=== PATIENT | male | born 1990 | race Caucasian/White ===

== ENCOUNTER 2024-02-12 09:31 | Emergency (ER) | payer BC, SELFPAY ==
[2024-02-12 09:38] VITALS: BP 137/87; PULSE 89; TEMP 36.9; O2SAT 99; BMI 31.0
--- NOTE | 2024-02-12 09:46 | XR_ITS ---
The [address] [address] Patient Name: JIMMY VALDEZ MRN: [id number] date: 1990 Sex: M Assigned Patient Location: ED.MAIN Current Patient Location: ER Accession/Order Number: [id number] Exam Date: 02/12/2024 10:15 Report Date: 02/12/2024 10:41 At the request of: JEAN REAL Procedure: XR abdomen 1V EXAM: XR abdomen 1V HISTORY: pain COMPARISON: CT abdomen and CT pelvis studies dated 04/16/2022 TECHNIQUE: AP view of the abdomen was obtained. FINDINGS: Calcific density overlying the inferior right kidney measuring 0.4 cm compatible with right renal calculus in correlated with CT study. There are 2 calcific densities overlying the mid and inferior aspects of the left kidney measuring approximately 0.3 and 0.2 cm compatible with left renal calculi when correlated with the CT study. There are 2 adjacent calcific densities suggested at the inferior L4 level on the left measuring approximately 0.3 cm in size each which may represent mid left ureteral calculi. Correlate clinically. Follow-up as needed. Bowel gas pattern is grossly nonspecific. Slight convexity of the thoracolumbar junction to the right with mild height loss of the lower thoracic vertebral bodies similar to the prior study. XR/XR abdomen 1V IMPRESSION: Findings compatible with calcified bilateral renal calculi as noted. Possible calcified mid left ureter calculi, correlate clinically. Follow-up as needed. Electronically authenticated by: ALEXIS DENT Date: 02/12/2024 10:41
--- NOTE | 2024-02-12 09:49 | ED.GENADUL1 ---
HPI HPI - General Adult General Chief complaint: Abdominal Pain Stated complaint: LEFT SIDE PAIN Time Seen by Provider: 02/12/24 09:46 Source: patient Mode of arrival: walk-in Limitations: no limitations History of Present Illness HPI narrative: Patient is a 33-year-old male who is presenting to the ER today with chief complaint of left lower back and left flank pain for the past 1.5 weeks. Patient has passed multiple kidney stones in the past. Patient has never had any type of lithotripsy or stent placed. Patient states that he normally passes them at home, he has no urine strainers. He currently has no urologist. Patient lab work today secondary to pain, patient stated the pain is approximately 4-5 out of 10. Patient states the pain has been intermittent but consistent for the past 1.5 weeks, he has not passed the stone yet. Patient thinks last time he had a CAT scan was approximately 2 years ago. Patient has no fever or chills. Patient has no chest pain or shortness of breath. Patient has no other acute complaints at this time. Patient looks comfortable. Patient drove to the ER. Patient left work to come to the ER. 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 No heavy lifting, twisting or turning. Patient did have left inguinal hernia repair in the past All systems are negative except as noted/marked. All systems reviewed and otherwise negative. Nurses note and vital signs reviewed and patient is not hypoxic. General: The patient appears mild distress secondary to pain, but rather comfortable on his phone. Patient is resting comfortably on cart. Patient is not toxic, lethargic, or listless Skin: Warm, dry, no pallor noted. There is no rash noted. No petechiae, purpura. Head: Normocephalic, atraumatic Eye: Normal conjunctiva, no drainage, EOMI. PERRL Ears, Nose, Mouth, and Throat: oral mucosa is moist. Nares patent. Mouth without vesicles. Cardiovascular: Regular Rate and Rhythm, no murmur, gallop, rub Respiratory: Patient is in no distress, no accessory muscle use, lungs are clear to auscultation, no wheezing, rales or rhonchi Back: Mild pain to left lower paralumbar area, no rash, otherwise non-tender, no CVA tenderness bilaterally to percussion. No CT LS midline pain GI: Patient has moderate left flank tenderness to palpation, no left lower quadrant tenderness palpation, no tenderness to palpation, no masses appreciated. No rebound, guarding, or rigidity noted. No distention Musculoskeletal: Patient has full range of motion of all of the extremities, no motor, sensory, or focal neurological deficits Neurological: A&O x4, normal speech Psychiatric: Cooperative Related Data Previous Rx's ?Medication ?Instructions ?Recorded cephalexin 500 mg capsule 500 mg PO Q12H 7 days #14 caps 02/12/24 hydrocodone 5 mg-acetaminophen 325 1 tab PO Q4H PRN pain #10 tabs 02/12/24 mg tablet ketorolac 10 mg tablet 10 mg PO Q8H PRN pain 1 day #10 02/12/24 tabs ondansetron 4 mg disintegrating 4 mg PO Q4H PRN nausea and 02/12/24 tablet vomiting 3 days #6 tabs tamsulosin 0.4 mg capsule (Flomax) 0.4 mg PO DAILY 7 days #7 caps 02/12/24 Allergies Allergy/AdvReac Type Severity Reaction Status Date / Time No Known Drug Allergies Allergy Verified 02/12/24 09:38 Opioid HPI Opioid Management Most Recent Opioid Data: Last Pain Scale 1 02/12/24 10:38 Last ED Pain Assessment 02/12/24 10:38 Last MAR Pain Assessment 02/12/24 09:59 Exam Constitutional Vital Signs, click to edit/add: Last Vital Signs Temp 98.5 F 02/12/24 09:38 Pulse 82 02/12/24 10:37 Resp 18 02/12/24 10:37 BP 134/75 02/12/24 10:37 Pulse Ox 99 02/12/24 10:37 O2 Del Method Room Air 02/12/24 09:38 Course Vital Signs Vital signs: Vital Signs Temperature 98.5 F 02/12/24 09:38 Pulse Rate 89 02/12/24 09:38 Respiratory Rate 18 02/12/24 09:38 Blood Pressure 137/87 02/12/24 09:38 Pulse Oximetry 99 02/12/24 09:38 Oxygen Delivery Method Room Air 02/12/24 09:38 Temperature 98.5 F 02/12/24 09:38 Pulse Rate 82 02/12/24 10:37 Respiratory Rate 18 02/12/24 10:37 Blood Pressure 134/75 02/12/24 10:37 Pulse Oximetry 99 02/12/24 10:37 Oxygen Delivery Method Room Air 02/12/24 09:38 Medical Decision Making MDM Narrative Medical decision making narrative: Patient x-ray shows most likely a left mid ureter stone. Patient BUN and creatinine are slightly elevated, he was given a second bag of IV fluids. Patient was given Rocephin for bacteria in the urine. There is 10 minutes spent discussing patient's CT of his abdomen pelvis from 2 years ago in 2021. Patient had a pedal splenomegaly, enlarged prostate, pulmonary nodules, bone lesion, fatty liver, and other findings. Patient was not aware of any of this. I went through each impression and discussed this with him and reasons and why to follow-up with. Patient was very thankful for time spent, he does have a PCP Dr. Seymour who he will follow-up with. Patient was given a work note for today. Patient was sent home with prescription for Zofran, [place], Toradol, and also Keflex along with Flomax. Patient currently does not have a urologist, he will follow-up with Dr. Hassan. Patient is a very pleasant to take care of, a lot of discussion at discharge on his multiple findings on CT from several years ago, reasons to follow-up, and also treatment of most likely left mid ureter stone. Patient pain and nausea and symptoms have significantly improved in the ER today. Lab Data Labs: Lab Results 02/12/24 02/12/24 Range/Units 09:40 09:45 WBC 10.3 (4.0-11.0) 10^3/uL RBC 5.43 (4.70-6.10) 10^6/uL Hgb 15.4 (14.0-18.0) g/dL Hct 46.4 (42.0-54.0) % MCV 85.5 (80.0-94.0) fL MCH 28.4 (25.9-34.0) pg MCHC 33.2 (29.9-35.2) g/dL RDW 13.0 (11.0-15.0) % Plt Count 335 (150-450) 10^3/uL MPV 10.6 (9.5-13.5) fL Neut % (Auto) 74.8 (43.0-75.0) % Lymph % (Auto) 14.3 L (20.5-60.0) % [place] % (Auto) 8.1 (1.7-12.0) % Eos % (Auto) 1.5 (0.9-7.0) % Baso % (Auto) 0.8 (0.2-2.0) % Neut # (Auto) 7.7 H (1.4-6.5) 10^3/uL Lymph # (Auto) 1.5 (1.2-3.8) 10^3/uL [place] # (Auto) 0.8 (0.3-0.8) 10^3/uL Eos # (Auto) 0.2 (0.0-0.7) 10^3/uL Baso # (Auto) 0.1 (0.0-0.1) 10^3/uL Abs Immat Gran (auto) 0.05 H (0.00-0.03) 10^3/uL Imm/Tot Granulo (auto) 0.5 (0.0-0.5) % Sodium 136 (136-145) mmol/L Potassium 4.1 (3.5-5.1) mmol/L Chloride 102 (98-107) mmol/L Carbon Dioxide 24.4 (21.0-32.0) mmol/L Anion Gap 13.7 BUN 21.0 H (7.0-18.0) mg/dL Creatinine 1.39 H (0.70-1.30) mg/dL Est GFR ( Amer) >60 (>=60) Est GFR (Non-Af Amer) 58 L (>=60) BUN/Creatinine Ratio 15.1 Glucose 100 (74-106) mg/dL Calcium 9.5 (8.5-10.1) mg/dL Total Bilirubin 1.9 H (0.2-1.0) mg/dL AST 18 (15-37) U/L ALT 33 (16-63) U/L Alkaline Phosphatase 56 (46-116) U/L Total Protein 7.5 (6.4-8.2) g/dL Albumin 3.8 (3.4-5.0) g/dL Globulin 3.7 g/dL Albumin/Globulin Ratio 1.0 Lipase 17.0 (16.0-77.0) U/L Urine Color Yellow (YELLOW) Urine Clarity Clear (CLEAR) Urine pH 6.0 (5.0-9.0) Ur Specific [place] >=1.030 A (1.005-1.025) Urine Protein Trace (NEG/TRACE) mg/dL Urine Glucose (UA) Negative (NEGATIVE) mg/dL Urine Ketones Negative (NEGATIVE) mg/dL Urine Occult Blood Large A (NEGATIVE) Urine Nitrite Negative (NEGATIVE) Urine Bilirubin Negative (NEGATIVE) Urine Urobilinogen 1.0 (0.2-1.0) EU/dL Ur Leukocyte Esterase Small A (NEGATIVE) Urine RBC 50-75 A (0-2) #/HPF Urine WBC 5-10 A (NONE SEEN) #/HPF Ur Squamous Epith Cells Rare (NONE/RARE) #/LPF Urine Crystals None seen (None Seen) #/HPF Urine Bacteria Moderate A (NONE SEEN) #/HPF Urine Casts None seen (NONE SEEN) #/LPF Urine Mucus Small A (NONE SEEN) Discharge Plan Discharge Stand Alone Forms: Work/School Release, Portal Instructions Chief Complaint: Abdominal Pain Clinical Impression: Bacteriuria, Hematuria, Calculus of kidney, Acute renal insufficiency, Dehydration Patient Disposition: Home, Self-Care Time of Disposition Decision: 11:11 Condition: Fair Prescriptions / Home Meds: New hydrocodone-acetaminophen 5-325 mg tablet 1 tab PO Q4H PRN (Reason: pain) Qty: 10 0RF ketorolac 10 mg tablet 10 mg PO Q8H PRN (Reason: pain) 1 Days Qty: 10 0RF tamsulosin [Flomax] 0.4 mg capsule 0.4 mg PO DAILY 7 Days Qty: 7 0RF cephalexin 500 mg capsule 500 mg PO Q12H 7 Days Qty: 14 0RF ondansetron 4 mg tablet,disintegrating 4 mg PO Q4H PRN (Reason: nausea and vomiting) 3 Days Qty: 6 0RF Print Language: Malay Instructions: Dehydration (ED), Renal Colic (ED), Hematuria (ED), Non-Alcoholic Fatty Liver Disease (ED), How to Strain Your Urine (ED), Pulmonary Nodules (ED), Impaired Kidney Function (ED) Additional Instructions: Continue to increase fluids Take Flomax daily Take your next dose of antibiotic tomorrow, antibiotic you had today is 24 hours A copy of your CT report was given to you and discussed. We did discuss fatty liver, enlargement of your liver, spleen. We discussed pulmonary nodules. We discussed the bone lesion. Follow-up with PCP for further evaluation and referral to specialist if needed. You have also been referred to Dr. Hassan for urology as well. Work note has been given. Use Toradol and pain medication as needed, along with nausea medication. Do not work or drive a vehicle within 4 hours after taking a pain pill. Return back to the ER for intractable nausea, vomiting, pain, or any other acute concerns Referrals: Toby Hassan MD [Physician] - 1 week Tino Seymour MD [Primary Care Provider] - 1 week
[2024-02-12] MEDS: 0.9 % SODIUM CHLORIDE 1,000 ML 999 ML IV (09:58)
[2024-02-12] MEDS: KETOROLAC TROMETHAMINE 30 MG/ML VIAL IVP (09:59)
[2024-02-12] MEDS: ONDANSETRON PF 4 MG/2 ML VIAL IV (09:59)
[2024-02-12 10:09] LABS: Basophils Absolute Auto 0.1 10^3/uL (0.0-0.1); Basophils Percent Auto 0.8 % (0.2-2.0); Eosinophils Absolute Auto 0.2 10^3/uL (0.0-0.7); Eosinophils Percent Auto 1.5 % (0.9-7.0); Hematocrit 46.4 % (42.0-54.0); Hemoglobin 15.4 g/dL (14.0-18.0); Immature Granulocytes Abs Auto 0.05 10^3/uL (0.00-0.03); Immature Granulocytes Pct Auto 0.5 % (0.0-0.5); Lymphocytes Absolute Auto 1.5 10^3/uL (1.2-3.8); Lymphocytes Percent Auto 14.3 % (20.5-60.0); Mean Corpuscular HGB Conc 33.2 g/dL (29.9-35.2); Mean Corpuscular Hemoglobin 28.4 pg (25.9-34.0); Mean Corpuscular Volume 85.5 fL (80.0-94.0); Mean Platelet Volume 10.6 fL (9.5-13.5); Monocytes Absolute Auto 0.8 10^3/uL (0.3-0.8); Monocytes Percent Auto 8.1 % (1.7-12.0); Neutrophils Absolute Auto 7.7 10^3/uL (1.4-6.5); Neutrophils Percent Auto 74.8 % (43.0-75.0); Platelet Count 335 10^3/uL (150-450); Red Blood Count 5.43 10^6/uL (4.70-6.10); White Blood Count 10.3 10^3/uL (4.0-11.0)
[2024-02-12 10:23] LABS: Alanine Aminotransferase 33 U/L (16-63); Albumin Level 3.8 g/dL (3.4-5.0); Alkaline Phosphatase 56 U/L (46-116); Anion Gap 13.7; Aspartate Amino Transferase 18 U/L (15-37); BUN Creatinine Ratio 15.1; Bilirubin Total 1.9 mg/dL (0.2-1.0); Calcium 9.5 mg/dL (8.5-10.1); Carbon Dioxide 24.4 mmol/L (21.0-32.0); Chloride 102 mmol/L (98-107); Estimated GFR (African America >60 (>=60); Estimated GFR (Non-African Ame 58 (>=60); Globulin 3.7 g/dL; Glucose 100 mg/dL (74-106); Potassium 4.1 mmol/L (3.5-5.1); Sodium 136 mmol/L (136-145); Total Protein 7.5 g/dL (6.4-8.2)
[2024-02-12 10:26] LABS: Bilirubin Urine NEGATIVE (NEGATIVE); Blood Urine LARGE (NEGATIVE); Clarity Urine CLEAR (CLEAR); Color Urine YELLOW (YELLOW); Glucose Urine UA NEGATIVE (NEGATIVE); Ketones Urine NEGATIVE (NEGATIVE); Leukocyte Esterase Urine SMALL (NEGATIVE); Nitrite Urine NEGATIVE (NEGATIVE); Protein Urine TRACE mg/dL (NEG/TRACE); Specific Gravity Urine >=1.030 (1.005-1.025)
[2024-02-12 10:37] VITALS: BP 134/75; PULSE 82; O2SAT 99
[2024-02-12 10:40] LABS: Bacteria Urine MODERATE #/HPF (NONE SEEN); Crystals Seen? None Seen #/HPF (None Seen); Mucus Urine SMALL (NONE SEEN); RBC Urine 50-75 #/HPF (0-2); Squamous Epithelial Cell Urine RARE #/LPF (NONE/RARE)
[2024-02-12 10:41] LABS: Cast Seen? NONE SEEN #/LPF (NONE SEEN)
[2024-02-12] MEDS: 0.9 % SODIUM CHLORIDE 1,000 ML 1000 ML IV (11:12)
[2024-02-12] MEDS: CEFTRIAXONE 1,000 MG in 0.9 % SODIUM CHLORIDE 50 ML 100 MG IV (11:13)
[2024-02-12 12:04] VITALS: PULSE 79; O2SAT 99
== END 2024-02-12 12:05 | disposition home or self-care (01) ==
PROVIDERS: Emergency Provider Emergency Medicine; PCP Family Medicine
DX: N20.0 Calculus of kidney (principal); E86.0 Dehydration; R31.9 Hematuria, unspecified; R82.71 Bacteriuria; N28.9 Disorder of kidney and ureter, unspecified; Z87.442 Personal history of urinary calculi
CPT/HCPCS: 36415; 74018; 80053; 81001; 83605; 83690; 85025; 96361; 96365; 96375; 99284

== ENCOUNTER 2024-02-28 09:54 | Outpatient (OUT) | payer BC, SELFPAY ==
--- NOTE | 2024-02-28 10:01 | XR_ITS ---
[address] [address] Patient Name: JIMMY VALDEZ MRN: [id number] date: 1990 Sex: M Assigned Patient Location: RAD Current Patient Location: RAD Accession/Order Number: [id number] Exam Date: 02/28/2024 10:13 Report Date: 02/28/2024 10:38 At the request of: NATTY FISHMAN Procedure: XR abdomen 1V EXAMINATION: XR abdomen 1V HISTORY: Kidney Stone N20.0 COMPARISON: 02/12/2024 FINDINGS: KIDNEY/URETER - RIGHT: No visible renal or ureteral calcifications. KIDNEY/URETER - LEFT: Punctate nephrolithiasis PELVIS: No visible ureteral calcifications. Any visible calcifications favor phleboliths. BOWEL: No abnormal dilation or deviation. Moderate stool in the right colon and rectum BONES: No acute abnormality. OTHER: Negative. No abnormal gaseous collections. XR/XR abdomen 1V IMPRESSION: Left nephrolithiasis Electronically authenticated by: GLO SAHNI Date: 02/28/2024 10:38
--- OUTSIDE RECORDS SUMMARY | 2024-02-28 10:05 | XMS_ITS | CCD ---
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 Name Role Phone DR BERKLEY BROCK Primary Care Unavailable JOSEPH JALLOH Admitting Unavailable KHLOE TRIMBLE Consulting Unavailable JOSEPH JALLOH Attending Unavailable TYRESE NEVILLE Consulting Unavailable DELMY, DR BERKLEY Vogel Attending Unavailable DELMY, DR BERKLEY Vogel Primary Care Unavailable KALEY, DR RICK Polanco Consulting Unavailable DELMY, DR BERKLEY Vogel Admitting Unavailable DELMY, DR BERKLEY Vogel Consulting Unavailable Toby FISHMAN Attending Unavailable Problems Active Problems Problem Classification Problem Date Documented Da te Episodic/Chronic Abdominal pain (4 sources) Unspecified abdominal pain; Translations: [UNSPECIFIED ABDOMINAL PAIN] Onset: 04-16-2022 Episodic Past or Other Problems Problem Classification Problem Date Documented Da te Episodic/Chronic Other male genital disorders (4 sources) Other specified disorders of the male genital organs; Translations: [OTHER SPEC D/O MALE GENITAL ORGANS] Onset: 10-13-2021 Episodic Results Test Name Value Interpretation Reference Range Facil ity CBC AUTO DIFFon 04-16-2022 BASO # 0.1 103/ul Normal 0.0-0.1 [facility] Comment on above: Performed By: #### C BC #### [facility] [address] [place] [address] Dr. Grady Haywood Basophils/100 WBC (Bld) 1.1 % Normal 0.2-2.0 [facility] Comment on above: Performed By: #### C BC #### [facility] [address] [address] [address] Grady Haywood EO # 0.2 103/ul Normal 0.0-0.7 [facility] Comment on above: Performed By: #### C BC #### [facility] [address] [place] [address] Dr. Grady Haywood Eosinophils/100 WBC (Bld) 2.8 % Normal 0.9-7.0 [facility] Comment on above: Performed By: #### C BC #### [facility] [address] [place] [address] Dr. Grady Haywood Erythrocyte distribution width (RBC) [Ratio] 13.0 % Normal 11.0-15.0 [facility] Comment on above: Performed By: #### C BC #### [facility] [address] [place] [address] Dr. Grady Haywood Hematocrit (Bld) [Volume fraction] 42.7 % Normal 42.0-54.0 [facility] Comment on above: Performed By: #### C BC #### [facility] [address] [place] [address] Dr. Grady Haywood Hemoglobin (Bld) [Mass/Vol] 14.2 g/dL Normal 14.0-18.0 [facility] Comment on above: Performed By: #### C BC #### [facility] [address] [place] [address] Dr. Grady Haywood IG # 0.01 10e3/ul Normal 0.00-0.03 [facility] Comment on above: Performed By: #### C BC #### [facility] [address] [place] [address] Dr. Grady Haywood IG % 0.2 % Normal 0.0-0.5 [facility] Comment on above: Performed By: #### C BC #### [facility] [address] [place] [address] Dr. Grady Haywood LYMPH # 1.3 103/ul Normal 1.2-3.8 [facility] Comment on above: Performed By: #### C BC #### [facility] [address] [place] [address] Dr. Grady Haywood Lymphocytes/100 WBC (Bld) 21.0 % Normal 20.5-60.0 [facility] Comment on above: Performed By: #### C BC #### [facility] [address] [place] [address] Dr. Grady Haywood MANUAL DIFF REQ NO Normal [facility] Comment on above: Performed By: #### C BC #### [facility] [address] [place] [address] Dr. Grady Haywood MCH (RBC) [Entitic mass] 28.8 pg Normal 25.9-34.0 [facility] Comment on above: Performed By: #### C BC #### [facility] [address] [place] [address] Dr. Grady Haywood MCHC (RBC) [Mass/Vol] 33.3 g/dL Normal 29.9-35.2 [facility] Comment on above: Performed By: #### C BC #### [facility] [address] [place] [address] Dr. Grady Haywood MCV (RBC) [Entitic vol] 86.6 fL Normal 80.0-94.0 [facility] Comment on above: Performed By: #### C BC #### [facility] [address] [place] [address] Dr. Grady Haywood MONO # 0.5 103/ul Normal 0.3-0.8 [facility] Comment on above: Performed By: #### C BC #### [facility] [address] [place] [address] Dr. Grady Haywood Monocytes/100 WBC (Bld) 7.8 % Normal 1.7-12.0 [facility] Comment on above: Performed By: #### C BC #### [facility] [address] [place] [address] Dr. Grady Haywood NEUT # 4.3 103/ul Normal 1.4-6.5 [facility] Comment on above: Performed By: #### C BC #### [facility] [address] [place] [address] Dr. Grady Haywood Neutrophils/100 WBC (Bld) 67.1 % Normal 43.0-75.0 [facility] Comment on above: Performed By: #### C BC #### [facility] [address] [place] [address] Dr. Grady Haywood Platelet mean volume (Bld) [Entitic vol] 10.3 fL Normal 9.5-13.5 [facility] Comment on above: Performed By: #### C BC #### [facility] [address] [place], [place] [address] Dr. Grady Haywood PLT 283 103/ul Normal 150-450 [facility] Comment on above: Performed By: #### C BC #### [facility] [address] [place], [place] [address] Dr. Grady Haywood RBC 4.93 106/ul Normal 4.70-6.10 [facility] Comment on above: Performed By: #### C BC #### [facility] [address] [place], [place] [address] Dr. Grady Haywood WBC 6.4 103/ul Normal 4.0-11.0 [facility] Comment on above: Performed By: #### C BC #### [facility] [address] [place], [place] [address] ABD/PELVIS WO CONon 04-16 CT ABD/PELVIS WO CON EXAMINATION: CT ABD/PELVIS WO CON, 04/16/2022 3:56 PM EDT HISTORY: Right flank abdominal pain for 2 to 3 weeks, progressive worsening COMPARISON: None. TECHNIQUE: CT scan of the abdomen and pelvis was performed without IV contrast. CT dose reduction technique was used, including Automated Exposure Control. FINDINGS: CT ABDOMEN: Several noncalcified juxtapleural nodularity is seen 0.4 cm right middle lobe, 0.5 cm lateral basilar segment right lower lobe, 0.5 cm anterior basilar segment right lower lobe. There is hepatomegaly, right lobe 17 cm. Hepatic steatosis is seen. Gallbladder, biliary tree, adrenal glands are unremarkable. The spleen is enlarged 14.2 cm longitudinally. Accessory splenic tissue is seen. Focal abnormality is not evident. Retained gastric content is seen. Stomach is nondistended. Pancreas is normal. The visualized abdominal aorta and inferior vena cava are normal in size and morphology. Periaortic abnormality is not evident. There is bilateral nephrolithiasis. 4 right renal calculi are seen measuring up to 0.4 cm upper pole 0.5 cm midpole 0.5 cm lower pole. At least 5 left renal calculi are seen measuring up to 0.5 cm upper pole, 0.7 cm midpole, 0.5 cm lower pole. Ureterolithiasis or obstructive uropathy is not evident. Indeterminate 1.9 cm circumscribed hypodense finding in the dorsal midpole left kidney is seen. Intraparenchymal location precludes accurate characterization. CT PELVIS: 5.7 cm prostatomegaly is seen. Seminal vesicles symmetric. Urinary bladder decompressed. Stool and gas are seen within nondistended colon. The bowel pattern is nonobstructive. Visualized appendix is normal. Left inguinal hernia repair is seen. Abdominal or pelvic free fluid, abscess, ectopic gas are not evident. Portacaval node measures 1.2 x 1.3 cm. Additional convincing adenopathy is not evident. Mild dextroconvex thoracolumbar curvature the spine is seen. Chronic loss of height of the right T10 vertebral segments noted. Acute osseous pathology is not evident. Nonaggressive lucent lesion in the left iliac bone measures 1.2 cm. Narrow zone of transition is seen. Nonaggressive process favored. IMPRESSION: 1. Bilateral nonobstructive nephrolithiasis 2. 1.9 cm hypodense circumscribed left kidney lesion. Indeterminate given intraparenchymal location. Renal sonography recommended. 3. Noncalcified lower lung pulmonary nodules up to 0.5 cm. In a nononcologic patient of this age these are presumed benign, not requiring further follow-up. 4. Hepatomegaly, hepatic steatosis 5. Nonspecific splenomegaly 6. Previous left inguinal hernia repair without complication 7. Nonspecific prostatomegaly 8. Normal appendix, nonobstructive bowel pattern 9. 1.2 cm left iliac bone lesion. Narrow zone of transition favors a nonaggressive process. Electronically authenticated by: TYRESE NEVILLE Date: 2022-04-16 17:12 Normal [facility] ER URINE PROFILEon 2 Bilirubin Ql (U) Negative Normal NEGATIVE [facility] Comment on above: Performed By: #### E RUR #### [facility] [address] [place], [place] [address] Dr. Grady Haywood Clarity (U) CLEAR Normal CLEAR [facility] Comment on above: Performed By: #### E RUR #### [facility] [address] [place], [place] [address] Dr. Grady Haywood Color (U) LT. YELLOW Normal YELLOW [facility] Comment on above: Performed By: #### E RUR #### [facility] [address] [place] [address] Dr. Grady COLEMAN A micrscopic examination will be performed if indicated. Normal [facility] Comment on above: Performed By: #### E RUR #### [facility] [address] [place] [address] Dr. Grady Haywood Glucose Ql (U) Negative Normal NEGATIVE [facility] Comment on above: Performed By: #### E RUR #### [facility] [address] [place] [address] Dr. Grady Haywood Hemoglobin Ql (U) Negative Normal NEGATIVE [facility] Comment on above: Performed By: #### E RUR #### [facility] [address] [place] [address] Dr. Grady Haywood Ketones Ql (U) Negative Normal NEGATIVE [facility] Comment on above: Performed By: #### E RUR #### [facility] [address] [place] [address] Dr. Grady Haywood LEUKOCYTES Negative Normal NEGATIVE [facility] Comment on above: Performed By: #### E RUR #### [facility] [address] [place] [address] Dr. Grady Haywood Nitrite Ql (U) Negative Normal NEGATIVE [facility] Comment on above: Performed By: #### E RUR #### [facility] [address] [place] [address] Dr. Grady Haywood pH (U) 7.0 [pH] Normal 5-9 [facility] Comment on above: Performed By: #### E RUR #### [facility] [address] [place] [address] Dr. Grady Haywood SPEC GRAVITY 1.020 Normal 1.005-<=1.025 [facility] Comment on above: Performed By: #### E RUR #### [facility] [address] [place] [address] Dr. Grady Haywood UA PROTEIN Negative Normal NEGATIVE/ TRACE [facility] Comment on above: Performed By: #### E RUR #### [facility] [address] [address] [address] Grady Haywood UR MICRO IND NOT INDICATED Normal [facility] Comment on above: Performed By: #### E RUR #### [facility] [address] [address] [address] Grady Haywood Urobilinogen Qn (U) 0.2 {Nighat'U}/dL Normal 0.2 - 1. 0 [facility] Comment on above: Performed By: #### E RUR #### [facility] [address] [address] [address] Grady Haywood PROF CHEM 8 (BAS METB)on Anion gap [Moles/Vol] 11.7 mmol/L Normal [facility] Comment on above: Performed By: #### B MP #### [facility] [address] [place] [address] Dr. Grady Haywood Calcium [Mass/Vol] 9.1 mg/dL Normal 8.5-10.1 [facility] Comment on above: Performed By: #### B MP #### [facility] [address] [place] [address] Dr. Grady Haywood Chloride [Moles/Vol] 105 mmol/L Normal 98-107 [facility] Comment on above: Performed By: #### B MP #### [facility] [address] [place] [address] Dr. Grady Haywood CO2 [Moles/Vol] 28.4 mmol/L Normal 21.0-32.0 [facility] Comment on above: Performed By: #### B MP #### [facility] [address] [place] [address] Dr. Grady Haywood Creatinine [Mass/Vol] 1.04 mg/dL Normal 0.70-1.30 [facility] Comment on above: Performed By: #### B MP #### [facility] [address] [place] [address] Dr. Grady Haywood EGFR-AF BURKINAN >60 Normal >=60 [facility] Comment on above: Performed By: #### B MP #### [facility] [address] [address] [address] Grady Haywood EGFR-NON AF BURKINAN >60 Normal >=60 [facility] Comment on above: Performed By: #### B MP #### [facility] [address] [address] [address] Grady Haywood Glucose [Mass/Vol] 102 mg/dL Normal 74-106 [facility] Comment on above: Performed By: #### B MP #### [facility] [address] [address] [address] Grady Haywood Potassium [Moles/Vol] 4.1 mmol/L Normal 3.5-5.1 [facility] Comment on above: Performed By: #### B MP #### [facility] [address] [place] [address] Dr. Grady Haywood Sodium [Moles/Vol] 141 mmol/L Normal 136-145 [facility] Comment on above: Performed By: #### B MP #### [facility] [address] [address] [address] Grady Haywood Urea nitrogen [Mass/Vol] 18.0 mg/dL Normal 7.0-18.0 [facility] Comment on above: Performed By: #### B MP #### [facility] [address] [place] [address] Dr. Grady Haywood Urea nitrogen/Creatinine [Mass ratio] 17.3 mg/mg Normal [facility] Comment on above: Performed By: #### B MP #### [facility] [address] [place] [address] Dr. Grady Haywood US SCROTUMon 10-13-2021 US SCROTUM EXAMINATION: US SCROTUM HISTORY: Disorder of male genital organ ; right testicular mass above testicle; no pain COMPARISON: No relevant comparison available. TECHNIQUE: High-resolution sonographic imaging of the scrotum and contents was performed. FINDINGS: RIGHT TESTICLE: Homogeneous echotexture. No visible mass. Color Doppler flow is present. Spectral Doppler demonstrates normal arterial waveform and flow, 5/3 cm/s (PSV/EDV), and normal venous wave flow averaging 1 cm/s. Small hydrocele. LEFT TESTICLE: Homogeneous echotexture. No visible mass. Color Doppler flow is present. Spectral Doppler demonstrates arterial waveform and flow, 3/2 cm/s (PSV/EDV), and normal venous flow averaging 1 cm/s. RIGHT EPIDIDYMIS: Slightly enlarged head of the epididymis containing several simple appearing cysts, largest is 1.1 cm. LEFT EPIDIDYMIS: Normal size and echogenicity. OTHER: None. IMPRESSION: 1. Several cysts within the head of the right epididymis likely accounting for the patient's symptoms. 2. Tiny right hydrocele. Electronically authenticated by: RICK ROCHE Date: 2021-10-13 10:13 [facility] Encounters Encounter Date Encounter Type Care Provider Facility Start: 03-05-2024 ambulatory Toby FISHMAN Facility :[facility] Start: 02-20-2024 ambulatory Toby FISHMAN Facility:[facility] Start: 04-16-2022 End: 04-16-[address] BERKLEY BROCK Facility:[facility] Start: 10-13-2021 End: 10-14-[address] BERKLEY BROCK Facility:[facility] Payers Date Payer Category Payer Unknown [id number] 1990 Unknown [id number] 1961 Unknown [id number] Summary Purpose Family History No Family History Records FoundNo Family History Records Found Advance Directives No Advanced Directives Records FoundNo Advanced Directives Records Found Additional Source Comments (unrecognized sect ion and content) No Status Records FoundNo Status Records Found INFORMATION SOURCE (unrecogn ized section and content) DATE CREATED AUTHOR 04/21/2022 [facility] DATE CREATED AUTHOR 'S ORGANIZ ATION 02/22/2024 [facility] FOR RECORDS PERTAINING TO PATIENTS WHO ARE OR HAVE BEEN ENROLLED IN A CHEMICAL DEPENDENCY/SUBSTANCEABUSE PROGRAM, SOME INFORMATION MAY BE OMITTED. This clinical summary was aggregated from multiple sources. Caution should be exercised in using it in the provision of clinical care. This summary normalizes information from multiple sources, and as a consequence, information in this document may materially change the coding, format and clinical context of patient data. In addition, data may be omitted in some cases. CLINICAL DECISIONS SHOULD BE BASED ON THE PRIMARY CLINICAL RECORDS. [facility] [employer] [facility] provides no warranty or guarantee of the accuracy or completeness of information in this document.
== END 2024-02-28 09:55 | disposition home or self-care (01) ==
LOC: RAD 09:55
PROVIDERS: PCP Family Medicine; Visit Provider Urology
DX: N20.0 Calculus of kidney (principal)
CPT/HCPCS: 74018

== ENCOUNTER 2024-03-27 10:51 | Outpatient (OUT) | payer BC, SELFPAY ==
--- NOTE | 2024-03-27 | XR_ITS ---
[address] [address] Patient Name: JIMMY VALDEZ MRN: [id number] date: 1990 Sex: M Assigned Patient Location: LAB Current Patient Location: Accession/Order Number: [id number] Exam Date: 03/27/2024 11:30 Report Date: 03/28/2024 07:16 At the request of: NATTY FISHMAN Procedure: XR abdomen 1V EXAMINATION: XR abdomen 1V HISTORY: Kidney stone N20.0 COMPARISON: 02/28/2024 FINDINGS: KIDNEY/URETER - RIGHT: 5 mm lower pole nephrolith KIDNEY/URETER - LEFT: Nephrolithiasis measuring up to 4 mm PELVIS: No visible ureteral calcifications. Any visible calcifications favor phleboliths. BOWEL: No abnormal dilation or deviation. BONES: No acute abnormality. OTHER: Negative. No abnormal gaseous collections. XR/XR abdomen 1V IMPRESSION: Bilateral nephrolithiasis Electronically authenticated by: GLO SAHNI Date: 03/28/2024 07:16
--- OUTSIDE RECORDS SUMMARY | 2024-03-27 11:07 | XMS_ITS | CCD ---
Author Organization [facility] Care Team Providers Care School Psychologist Assistant Name Role Phone DR BERKLEY BROCK Primary Care Unavailable JOSEPH JALLOH Admitting Unavailable KHLOE TRIMBLE Consulting Unavailable JOSEPH JALLOH Attending Unavailable TYRESE NEVILLE Consulting Unavailable DELMY, DR BERKLEY Vogel Attending Unavailable DELMY, DR BERKLEY Vogel Primary Care Unavailable KALEY, DR RICK Polanco Consulting Unavailable DELMY, DR BERKLEY Vogel Admitting Unavailable DELMY, DR BERKLEY Vogel Consulting Unavailable Toby HASSAN Attending Unavailable Toby HASSAN Attending Unavailable Allergies Allergy Classification Reported Allergen(s) Allergy Type Date of Onset Reaction(s) Facility (1 source) No Known Medication Allergies; Translations: [No Known Medication Allergies] Propensity to adverse reactions (disorder) [facility] Repository Medications Current Medications Medication Drug Class(es) Dates Sig (Normalized) Sig (Original) acetaminophen 325 mg / HYDROcodone bitartrate 5 mg oral tablet (1 source) Opioid Agonist Start: 03-05-2024 take 1 tablet by mouth every four hours as needed for pain acetaminophen-hy drocodone 325 mg-5 mg oral tablet 1 tab(s), Oral, q4hr, Refill(s) 0, as needed for pain Start Date: 03/05/24 Status: Ordered cephalexin 500 mg oral capsule (1 source) Cephalosporin Antibacterial Start: 03-05-2024 take 1 capsule by mouth every twelve hours cephalexin 500 mg Cap 500 mg = 1 cap(s), Oral, q12hr, Refills(s) 0 Start Date: 03/05/24 Status: Ordered ketorolac tromethamine 10 mg oral tablet (1 source) Nonsteroidal Anti-inflammatory Drug, Cyclooxygenase Inhibitor Start: 03-05-2024 take 1 tablet by mouth every four hours as needed for pain ketorolac 10 mg Tab 10 mg = 1 tab(s), Oral, q4hr, PRN for pain, # 60 tab(s), Refills(s) 0 Start Date: 03/05/24 Status: Ordered ondansetron 4 mg disintegrating oral tablet (1 source) Serotonin-3 Receptor Antagonist Start: 03-05-2024 take 1 tablet by mouth every four hours as needed for nausea and vomiting ondansetron 4 mg Dis Tab 4 mg = 1 tab(s), Oral, q4hr, as needed for nausea and vomiting, Refills(s) 0 Start Date: 03/05/24 Status: Ordered tamsulosin hydrochloride 0.4 mg oral capsule (1 source) alpha-Adrenergic Santhosh Start: 03-05-2024 take 1 capsule by mouth once daily tamsulosin 0.4 mg Cap 0.4 mg = 1 cap(s), Oral, Daily, Refills(s) 0 Start Date: 03/05/24 Status: Ordered Problems Active Problems Problem Classification Problem Date Documented Da te Episodic/Chronic Abdominal pain (4 sources) Unspecified abdominal pain; Translations: [UNSPECIFIED ABDOMINAL PAIN] Onset: 04-16-2022 Episodic Calculus of urinary tract (6 sources) History of calculus of kidney; Translations: [Personal history of urinary calculi] Onset: 03-05-2024 Episodic Genitourinary symptoms and ill-defined conditions (1 source) Blood in urine 03-05-2024 Episodic Other male genital disorders (1 source) Lesion of penis 03-05-2024 Chronic Other male genital disorders (1 source) Adhesions of prepuce and glans penis; Translations: [Adhesions of prepuce and glans penis] Onset: 03-05-2024 Episodic Past or Other Problems Problem Classification Problem Date Documented Da te Episodic/Chronic Other male genital disorders (4 sources) Other specified disorders of the male genital organs; Translations: [OTHER SPEC D/O MALE GENITAL ORGANS] Onset: 10-13-2021 Episodic Results Test Name Value Interpretation Reference Range Facil ity ED Note-Physicianon 03-06-20 ED Note-Physician [id number]#1.0 0TIFF [facility] Formson 03-06-2024 Forms [id number]#1. 00TIFF [facility] Forms [id number]#1.0 0TIFF [facility] RAD - MISCon 03-06-2024 [facility] [id number]. 00TIFF [facility] [id number]#1.00 TIFF [facility] Ambulatory Visit Summaryon 0 03-05-2024 Ambulatory Visit Summary JIMMY VALDEZ :1990 Visit Date:03/05/2024 Ambulatory Visit Instructions Your Diagnosis Ureteral stone Kidney stones History of kidney stones Penile adhesions Tests Performed XR Abdomen 1 View -- Results Pending -- Please visit your patient portal for your results or contact your primary care physician. Your Care Team Attending Physician - Toby HASSAN MD This Is Your Medications List Contact prescribing physician if questions or concerns acetaminophen-hydrocod one (acetaminophen-hydroco done 325 mg-5 mg oral tablet) cephalexin (cephalexin 500 mg Cap) ketorolac (ketorolac 10 mg Tab) ondansetron (ondansetron 4 mg Dis Tab) tamsulosin (tamsulosin 0.4 mg Cap) Discharge Vitals Temperature (Temporal Artery) 36.7 ?C Heart Rate (Peripheral) 75 Respiratory Rate 16 Blood Pressure 137/80 Height 175 cm Height 69 in Weight 95.3 kg Weight 209.66 lb BMI 31.12 What to do next Scheduled Follow-Up Appointments Monday 9:15 AM EST With: Toby HASSAN MD Where: [facility] Patient Educationon 03-05-20 Patient Education Urology Kidney Stones Kidney stones are rock-like masses that form inside of the kidneys. Kidneys are organs that make pee (urine). A kidney stone may move into other parts of the urinary tract, including: ? The tubes that connect the kidneys to the bladder (ureters). ? The bladder. ? The tube that carries urine out of the body (urethra). Kidney stones can cause very bad pain and can block the flow of pee. The stone usually leaves your body (passes) through your pee. You may need to have a doctor take out the stone. What are the causes? Kidney stones may be caused by: ? A condition in which certain glands make too much parathyroid hormone (primary hyperparathyroidism). ? A buildup of a type of crystals in the bladder made of a chemical called uric acid. The body makes uric acid when you eat certain foods. ? Narrowing (stricture) of one or both of the ureters. ? A kidney blockage that you were born with. ? Past surgery on the kidney or the ureters, such as gastric bypass surgery. What increases the risk? You are more likely to develop this condition if: ? You have had a kidney stone in the past. ? You have a family history of kidney stones. ? You do not drink enough water. ? You eat a diet that is high in protein, salt (sodium), or sugar. ? You are overweight or very overweight (obese). What are the signs or symptoms? Symptoms of a kidney stone may include: ? Pain in the side of the belly, right below the ribs (flank pain). Pain usually spreads (radiates) to the groin. ? Needing to pee often or right away (urgently). ? Pain when going pee (urinating). ? Blood in your pee (hematuria). ? Feeling like you may vomit (nauseous). ? Vomiting. ? Fever and chills. How is this treated? Treatment depends on the size, location, and makeup of the kidney stones. The stones will often pass out of the body through peeing. You may need to: ? Drink more fluid to help pass the stone. In some cases, you may be given fluids through an IV tube put into one of your veins at the hospital. ? Take medicine for pain. ? Make changes in your diet to help keep kidney stones from coming back. Sometimes, medical procedures are needed to remove a kidney stone. This may involve: ? A procedure to break up kidney stones using a beam of light (laser) or shock waves. ? Surgery to remove the kidney stones. Follow these instructions at home: Medicines ? Take omfo-ofz-qojqbtn and prescription medicines only as told by your doctor. ? Ask your doctor if the medicine prescribed to you requires you to avoid driving or using heavy machinery. Eating and drinking ? Drink enough fluid to keep your pee pale yellow. You may be told to drink at least 8?10 glasses of water each day. This will help you pass the stone. ? If told by your doctor, change your diet. This may include: ? Limiting how much salt you eat. ? Eating more fruits and vegetables. ? Limiting how much meat, poultry, fish, and eggs you eat. ? Follow instructions from your doctor about eating or drinking restrictions. General instructions ? Collect pee samples as told by your doctor. You may need to collect a pee sample: ? 24 hours after a stone comes out. ? 8?12 weeks after a stone comes out, and every 6?12 months after that. ? Strain your pee every time you pee (urinate), for as long as told. Use the strainer that your doctor recommends. ? Do not throw out the stone. Keep it so that it can be tested by your doctor. ? Keep all follow-up visits as told by your doctor. This is important. You may need follow-up tests. How is this prevented? To prevent another kidney stone: ? Drink enough fluid to keep your pee pale yellow. This is the best way to prevent kidney stones. ? Eat healthy foods. ? Avoid certain foods as told by your doctor. You may be told to eat less protein. ? Stay at a healthy weight. Where to find more information ? National Kidney Foundation (NKF): www.kidney.org ? [employer] (UCF): www.urologyhealth.org Contact a doctor if: ? You have pain that gets worse or does not get better with medicine. Get help right away if: ? You have a fever or chills. ? You get very bad pain. ? You get new pain in your belly (abdomen). ? You pass out (faint). ? You cannot pee. Summary ? Kidney stones are rock-like masses that form inside of the kidneys. ? Kidney stones can cause very bad pain and can block the flow of pee. ? The stones will often pass out of the body through peeing. ? Drink enough fluid to keep your pee pale yellow. This information is not intended to replace advice given to you by your health care provider. Make sure you discuss any questions you have with your health care provider. Document Revised: 05/23/2022 Document Reviewed: 05/23/2022 [employer] Patient Education ? 2022 [employer] 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 male new patient here for [facility] ER follow up. Pt presented to [facility] ER on 02/12/24 due to left lower back pain. KUB done on 02/12/24. Scrotal US done on 10/13/21. CT done on 04/16/22. BUN 21.0 & CRE 1.39 done on 02/12/24. Dysuria: denies Incomplete bladder emptying: denies Hematuria: denies Frequency: denies Urgency: denies Nocturia: occasionally Stream: steady Leaking: denies Post void dripping: denies Wearing pads/ Depends: denies Urge incontinence: denies Stress incontinence: denies Incontinence without Sensory Awareness: denies Abdominal pain: denies Flank pain: denies Sexual complaints: _ History of Present Illness Tests reviewed: reviewed UA, ER notes, labs, scrotal US, KUBs I have reviewed the previous health record information and history for this patient from Dr. Hassan. I have reviewed and verified the staff HPI to be accurate for this encounter. Review of Systems PHQ Score Initial Depression Screen Score: 0 SCORE ROS - Provider Constitutional: denies weight loss, denies hot flashes. Eyes: denies eye problems. Gastrointestinal: denies nausea, denies vomiting. Cardiovascular: denies chest pain or angina. Integumentary: no dryness Musculoskeletal: denies musculoskeletal symptoms. ENMT: denies otolaryngeal symptoms. Respiratory: no shortness of breath. Heme/Lymph: denies easy bleeding tendency, denies easy bruising tendency. Psychiatric: no confusion, no anxiety. Genitourinary: See HPI. Physical Exam Vitals & Measurements T: 36.7 ?C(Temporal Artery) HR: 75(Peripheral) RR: 16 BP: 137/80 HT: 69 in HT: 175 cm WT: 95.3 kg WT: 209.66 lb BMI: 31.12 General Appearance: alert , no acute distress, well nourished, well developed female. Head: normocephalic . Eyes: normal orbit and globe. ENMT: normal examination of external ears. Cardiovascular: regular rate and rhythm. Abdomen: soft , non distended, no tenderness, no mass or organomegaly, no hernia. Genitourinary: bladder nonpalpable, no flank tenderness. Penis with dorsal adhesions from glans to inner foreskin. Lymph Nodes: unremarkable palpation of the cervical area. Skin: warm, dry, no bruising. Psychiatric: cooperative, affect appropriate for age, normal judgement, euthymic mood. Assessment/Plan Jimmy is a 33 yo male new pt here for f/u to [facility] ER visit. 1. Ureteral stone (N20.1: Calculus of ureter) [facility] 02/12/24 with lower back pain and left flank pain ongoing x1.5 wks. Given pain meds and Keflex. KUB 02/12/24 [facility] - 0.4 cm R renal calcific density. Two calcifications overlying mid and inferior aspect of L kidney measuring 0.3 and 0.2 cm. Two adjacent calcific densities at inferior L4 on L measuring 0.3 cm in size each, may represent KUB 02/28/24 [facility] - No visible R renal or ureteral calcifications. Punctate L nephrolithiasis (no provided measurements). No pain since ER visit. Last episode was 3-4 days ago. States he drank water and pain improved. Advised pt it is likely that he passed stone given small size. Also advised pt he also has left renal stones. Will need to cont to monitor. Discussed metabolic workup to determine the etiology of kidney stone formation, including genetic predisposition, dietary factors, and different metabolism in patients. Pt is willing to proceed. -F/u in 6 mos w/ KUB and [facility]olink/blood work. 2. Kidney stones (N20.0: Calculus of kidney) See #1. 3. History of kidney stones (Z87.442: Personal history of urinary calculi) Has passed multiple stones in the past, never required intervention. 4. 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 Overall this patient has the diagnosis of the 3 mm stone in the left upper ureter. The presumption is that he has passed the stone. He had about a 95 to 98% chance of doing so. He does have multiple stones in the left kidney. I feel this justifies a metabolic workup and he agrees with that plan. 6-month follow-up with 24-hour urine and blood work and KUB. He agrees with that plan and will call for difficulties prior to next visit they will talk about Portions of this record may have been created with voice recognition artificial intelligence software, specifically [employer], [employer] and or [employer]. Substitutions may have occurred due to the inherent limitations of voice recognition and artificial intelligence software. Follow-up With When Contact Information Toby HASSAN MD, URL [address] [place] [id number]- Additional Instructions: 6 mos w/ KUB and met w/u Patient Education Kidney Stones, Iqgt-ea-Toqb Kanika Lyons, personally scribed for Dr. Hassan on 03/05/2024 11:18:47. . Documentation recorded by the Kanika mcelroy acurately reflects the services(s) I performed and decisions made by me. Authent (more content not included)... Normal [facility] Comment on above: Result Comment: Elec tronically Signed By: Toby HASSAN MD\.br\Date and Time Signed: 03/05/24 12:00 EDT\.br\Electronically Co-Signed By: Kanika Jfefers\.br\Date and Time Co-Signed: 03/05/24 11:19 EDT RAD - MISCon 03-04-2024 RAD - MISC [id number]#1.0 0TIFF Normal [facility] CBC AUTO DIFFon 04-16-2022 BASO # 0.1 103/ul Normal 0.0-0.1 [facility] Comment on above: Performed By: #### C BC #### [facility] [address] [address] [address] Grady Haywood Basophils/100 WBC (Bld) 1.1 % Normal 0.2-2.0 [facility] Comment on above: Performed By: #### C BC #### [facility] [address] [address] [address] Grady Haywood EO # 0.2 103/ul Normal 0.0-0.7 [facility] Comment on above: Performed By: #### C BC #### [facility] [address] [place] [address] Dr. Grady Haywood Eosinophils/100 WBC (Bld) 2.8 % Normal 0.9-7.0 [facility] Comment on above: Performed By: #### C BC #### [facility] [address] [place] [address] Dr. Grady Haywood Erythrocyte distribution width (RBC) [Ratio] 13.0 % Normal 11.0-15.0 [facility] Comment on above: Performed By: #### C BC #### [facility] [address] [place] [address] Dr. Grady Haywood Hematocrit (Bld) [Volume fraction] 42.7 % Normal 42.0-54.0 [facility] Comment on above: Performed By: #### C BC #### [facility] [address] [place] [address] Dr. Grady Haywood Hemoglobin (Bld) [Mass/Vol] 14.2 g/dL Normal 14.0-18.0 [facility] Comment on above: Performed By: #### C BC #### [facility] [address] [place] [address] Dr. Grady Haywood IG # 0.01 10e3/ul Normal 0.00-0.03 [facility] Comment on above: Performed By: #### C BC #### [facility] [address] [place] [address] Dr. Grady Haywood IG % 0.2 % Normal 0.0-0.5 [facility] Comment on above: Performed By: #### C BC #### [facility] [address] [place] [address] Dr. Grady Haywood LYMPH # 1.3 103/ul Normal 1.2-3.8 [facility] Comment on above: Performed By: #### C BC #### [facility] [address] [place] [address] Dr. Grady Haywood Lymphocytes/100 WBC (Bld) 21.0 % Normal 20.5-60.0 [facility] Comment on above: Performed By: #### C BC #### [facility] [address] [place] [address] Dr. Grady Haywood MANUAL DIFF REQ NO Normal [facility] Comment on above: Performed By: #### C BC #### [facility] [address] [place] [address] Dr. Grady Haywood MCH (RBC) [Entitic mass] 28.8 pg Normal 25.9-34.0 [facility] Comment on above: Performed By: #### C BC #### [facility] [address] [place] [address] Dr. Grady Haywood MCHC (RBC) [Mass/Vol] 33.3 g/dL Normal 29.9-35.2 [facility] Comment on above: Performed By: #### C BC #### [facility] [address] [place] [address] Dr. Grady Haywood MCV (RBC) [Entitic vol] 86.6 fL Normal 80.0-94.0 [facility] Comment on above: Performed By: #### C BC #### [facility] [address] [place] [address] Dr. Grady Haywood MONO # 0.5 103/ul Normal 0.3-0.8 [facility] Comment on above: Performed By: #### C BC #### [facility] [address] [place] [address] Dr. Grady Haywood Monocytes/100 WBC (Bld) 7.8 % Normal 1.7-12.0 [facility] Comment on above: Performed By: #### C BC #### [facility] [address] [place] [address] Dr. Grady Haywood NEUT # 4.3 103/ul Normal 1.4-6.5 [facility] Comment on above: Performed By: #### C BC #### [facility] [address] [place] [address] Dr. Grady Haywood Neutrophils/100 WBC (Bld) 67.1 % Normal 43.0-75.0 [facility] Comment on above: Performed By: #### C BC #### [facility] [address] [address] [address] Grady Haywood Platelet mean volume (Bld) [Entitic vol] 10.3 fL Normal 9.5-13.5 [facility] Comment on above: Performed By: #### C BC #### [facility] [address] [address] [address] Grady Haywood PLT 283 103/ul Normal 150-450 [facility] Comment on above: Performed By: #### C BC #### [facility] [address] [address] [address] Grady Haywood RBC 4.93 106/ul Normal 4.70-6.10 [facility] Comment on above: Performed By: #### C BC #### [facility] [address] [place] [address] Dr. Grady Haywood WBC 6.4 103/ul Normal 4.0-11.0 [facility] Comment on above: Performed By: #### C BC #### [facility] [address] [place] [address] ABD/PELVIS WO CONon [...] TYRESE NEVILLE Date: 2022-04-16 17:12 Normal [facility] ER URINE PROFILEon 2 Bilirubin Ql (U) Negative Normal NEGATIVE [facility] Comment on above: Performed By: #### E RUR #### [facility] [address] [place] [address] Dr. Grady Haywood Clarity (U) CLEAR Normal CLEAR [facility] Comment on above: Performed By: #### E RUR #### [facility] [address] [place] [address] Dr. Grady Haywood Color (U) LT. YELLOW Normal YELLOW [facility] Comment on above: Performed By: #### E RUR #### [facility] [address] [place] [address] Dr. Grady Haywood ERUAHD A micrscopic examination will be performed if indicated. Normal [facility] Comment on above: Performed By: #### E RUR #### [facility] [address] [place] [address] Dr. Grady Haywood Glucose Ql (U) Negative Normal NEGATIVE [facility] Comment on above: Performed By: #### E RUR #### [facility] [address] [place] [address] Dr. Grady Haywood Hemoglobin Ql (U) Negative Normal NEGATIVE [facility] Comment on above: Performed By: #### E RUR #### [facility] [address] [place] [address] Dr. rGady Haywood Ketones Ql (U) Negative Normal NEGATIVE [facility] Comment on above: Performed By: #### E RUR #### [facility] [address] [place] [address] Dr. Grady Haywood LEUKOCYTES Negative Normal NEGATIVE [facility] Comment on above: Performed By: #### E RUR #### [facility] [address] [place] [address] Dr. Grady Haywood Nitrite Ql (U) Negative Normal NEGATIVE [facility] Comment on above: Performed By: #### E RUR #### [facility] [address] [place] [address] Dr. Grady Haywood pH (U) 7.0 [pH] Normal 5-9 [facility] Comment on above: Performed By: #### E RUR #### [facility] [address] [place] [address] Dr. Grady Haywood SPEC GRAVITY 1.020 Normal 1.005-<=1.025 [facility] Comment on above: Performed By: #### E RUR #### [facility] [address] [place] [address] Dr. Grady Haywood UA PROTEIN Negative Normal NEGATIVE/ TRACE [facility] Comment on above: Performed By: #### E RUR #### [facility] [address] [place] [address] Dr. Grady Haywood UR MICRO IND NOT INDICATED Normal [facility] Comment on above: Performed By: #### E RUR #### [facility] [address] [place] [address] Dr. Grady Haywood Urobilinogen Qn (U) 0.2 {Nighat'U}/dL Normal 0.2 - 1. 0 [facility] Comment on above: Performed By: #### E RUR #### [facility] [address] [place] [address] Dr. Grady Haywood PROF CHEM 8 (BAS METB)on Anion gap [Moles/Vol] 11.7 mmol/L Normal [facility] Comment on above: Performed By: #### B MP #### [facility] [address] [place] [address] Dr. Grady Haywood Calcium [Mass/Vol] 9.1 mg/dL Normal 8.5-10.1 [facility] Comment on above: Performed By: #### B MP #### [facility] [address] [place] [address] Dr. Grady Haywood Chloride [Moles/Vol] 105 mmol/L Normal 98-107 [facility] Comment on above: Performed By: #### B MP #### [facility] [address] [place] [address] Dr. Grady Haywood CO2 [Moles/Vol] 28.4 mmol/L Normal 21.0-32.0 [facility] Comment on above: Performed By: #### B MP #### [facility] [address] [place] [address] Dr. Grady Haywood Creatinine [Mass/Vol] 1.04 mg/dL Normal 0.70-1.30 [facility] Comment on above: Performed By: #### B MP #### [facility] [address] [address] [address] Grady Haywood EGFR-AF SAMOAN >60 Normal >=60 [facility] [facility] Comment on above: Performed By: #### B MP #### [facility] [address] [address] [address] Grady Haywood EGFR-NON AF SAMOAN >60 Normal >=60 [facility] Comment on above: Performed By: #### B MP #### [facility] [address] [address] [address] Grady Haywood Glucose [Mass/Vol] 102 mg/dL Normal 74-106 [facility] Comment on above: Performed By: #### B MP #### [facility] [address] [place] [address] Dr. Grady Haywood Potassium [Moles/Vol] 4.1 mmol/L Normal 3.5-5.1 [facility] Comment on above: Performed By: #### B MP #### [facility] [address] [address] [address] Grady Haywood Sodium [Moles/Vol] 141 mmol/L Normal 136-145 [facility] Comment on above: Performed By: #### B MP #### [facility] [address] [place] [address] Dr. Grady Haywood Urea nitrogen [Mass/Vol] 18.0 mg/dL Normal 7.0-18.0 [facility] Comment on above: Performed By: #### B MP #### [facility] [address] [place] [address] Dr. Grady Haywood Urea nitrogen/Creatinine [Mass ratio] 17.3 mg/mg Normal [facility] Comment on above: Performed By: #### B MP #### [facility] [address] [place] [address] Dr. Grady Haywood [place] SCROTUMon 10-13-2021 [place] [...] authenticated by: RICK ROCHE Date: 2021-10-13 10:13 Normal [facility] Vital Signs Date Time Vital Sign Value Performing Clinician Facility 03-05-2024 10:31-0400 Blood Pressure Location Toby Baifendian [facility] 03-05-2024 10:31-0400 Body temperature 98.06 [degF] Toby Baifendian [facility] 03-05-2024 10:31-0400 Diastolic blood pressure 80 mm[Hg] Toby Baifendian [facility] 03-05-2024 10:31-0400 Heart rate 75 /min [employer] [facility] 03-05-2024 10:31-0400 Respiratory rate 16 /min Toby Baifendian [facility] 03-05-2024 10:31-0400 Systolic blood pressure 137 mm[Hg] Toby Baifendian [facility] Encounters Encounter Date Encounter Type Care Provider Facility Start: 09-23-2024 ambulatory Toby HASSAN Facility :[facility] Start: 03-05-2024 End: 03-05-2024 ambulatory Toby HASSAN Facility:[facility] Start: 03-05-2024 End: 03-05-2024 Patient encounter procedure Toby HASSAN [facility] Start: 02-20-2024 ambulatory Toby HASSAN Facility:[facility] Start: 04-16-2022 End: 04-16-[address] BERKLEY BROCK Facility:[facility] Start: 10-13-2021 End: 10-14-[address] BERKLEY BROCK Facility:[facility] Immunizations Immunization Date Immunization Notes Care Provider [facility] 12-03-2022 SARS-CoV-2 (COVID-19 ) [id number] Toby HASSAN [facility] 01-30-2021 SARS-CoV-2 (COVID-19 ) mRNA BNT-162b2 vax Tobyharris HASSAN [facility] 02-13-2007 meningococcal ACWY vaccine, unspecified formulation Toby HASSAN [facility] 05-22-2001 measles, mumps and rubella virus vaccine Toby [employer] [facility] 12-13-1993 DTaP, unspecified formulation Toby [employer] [facility] 03-21-1990 Hib, unspecified formulation Toby [employer] [facility] 11-08-1989 measles, mumps and rubella virus vaccine Toby [employer] [facility] Payers Date Payer Category Payer Unknown [id number] 1990 Unknown [id number] 1990 Unknown [id number] [id number] 1990 Unknown [id number] [id number] 1988 Unknown [id number] 1959 Unknown [id number] Social History Date Type Detail Facility Start: 03-05-2024 Tobacco smoking status Never s moked tobacco (finding) [facility] Tobacco smoking status Never [facility] Sex Assigned At Male [facility] Functional Status Date Assessment Result Facility 03-05-2024 Functional Status N/A [facility] Hospital Discharge instructions 03-05-2024 Note Date & Type Note Facility 03-05-2024 Hospital Discharg e instructions Patient Education 03/05/2024 11:14:45 Kidney Stones, Nwzf-cy-Lysb Kidney Stones Kidney stones are rock-like masses that form inside of the kidneys. Kidneys are organs that make pee (urine). A kidney stone may move into other parts of the urinary tract, including: The tubes that connect the kidneys to the bladder (ureters). The bladder. The tube that carries urine out of the body (urethra). Kidney stones can cause very bad pain and can block the flow of pee. The stone usually leaves your body (passes) through your pee. You may need to have a doctor take out the stone. What are the causes? Kidney stones may be caused by: A condition in which certain glands make too much parathyroid hormone (primary hyperparathyroidism). A buildup of a type of crystals in the bladder made of a chemical called uric acid. The body makes uric acid when you eat certain foods. Narrowing (stricture) of one or both of the ureters. A kidney blockage that you were born with. Past surgery on the kidney or the ureters, such as gastric bypass surgery. What increases the risk? You are more likely to develop this condition if: You have had a kidney stone in the past. You have a family history of kidney stones. You do not drink enough water. You eat a diet that is high in protein, salt (sodium), or sugar. You are overweight or very overweight (obese). What are the signs or symptoms? Symptoms of a kidney stone may include: Pain in the side of the belly, right below the ribs (flank pain). Pain usually spreads (radiates) to the groin. Needing to pee often or right away (urgently). Pain when going pee (urinating). Blood in your pee (hematuria). Feeling like you may vomit (nauseous). Vomiting. Fever and chills. How is this treated? Treatment depends on the size, location, and makeup of the kidney stones. The stones will often pass out of the body through peeing. You may need to: Drink more fluid to help pass the stone. In some cases, you may be given fluids through an IV tube put into one of your veins at the hospital. Take medicine for pain. Make changes in your diet to help keep kidney stones from coming back. Sometimes, medical procedures are needed to remove a kidney stone. This may involve: A procedure to break up kidney stones using a beam of light (laser) or shock waves. Surgery to remove the kidney stones. Follow these instructions at home: Medicines Take nkfy-cjt-pljdxef and prescription medicines only as told by your doctor. Ask your doctor if the medicine prescribed to you requires you to avoid driving or using heavy machinery. Eating and drinking Drink enough fluid to keep your pee pale yellow. You may be told to drink at least 8 10 glasses of water each day. This will help you pass the stone. If told by your doctor, change your diet. This may include: ?Limiting how much salt you eat. ?Eating more fruits and vegetables. ?Limiting how much meat, poultry, fish, and eggs you eat. Follow instructions from your doctor about eating or drinking restrictions. General instructions Collect pee samples as told by your doctor. You may need to collect a pee sample: ?24 hours after a stone comes out. ?8 12 weeks after a stone comes out, and every 6 12 months after that. Strain your pee every time you pee (urinate), for as long as told. Use the strainer that your doctor recommends. Do not throw out the stone. Keep it so that it can be tested by your doctor. Keep all follow-up visits as told by your doctor. This is important. You may need follow-up tests. How is this prevented? To prevent another kidney stone: Drink enough fluid to keep your pee pale yellow. This is the best way to prevent kidney stones. Eat healthy foods. Avoid certain foods as told by your doctor. You may be told to eat less protein. Stay at a healthy weight. Where to find more information National Kidney Foundation (NKF): www.kidney.org [facility] (UCF): www.urologyhealth.org Contact a doctor if: You have pain that gets worse or does not get better with medicine. Get help right away if: You have a fever or chills. You get very bad pain. You get new pain in your belly (abdomen). You pass out (faint). You cannot pee. Summary Kidney stones are rock-like masses that form inside of the kidneys. Kidney stones can cause very bad pain and can block the flow of pee. The stones will often pass out of the body through peeing. Drink enough fluid to keep your pee pale yellow. This information is not intended to replace advice given to you by your health care provider. Make sure you discuss any questions you have with your health care provider. Document Revised: 05/23/2022 Document Reviewed: 05/23/2022 [employer] Patient Education 2022 [employer]. Follow Up Care 02/20/2024 10:19:28 With:Toby HASSAN MD, URL Address: [address] [place], [place] [id number]- When: Unknown Comments:6 mos w/ KUB and met w/u [facility] Evaluation + Plan note Note Date & Type Note Facility Evaluation + Plan note Future Appointments Appointment Date:09/23/2024 09:15:00 AM Scheduled Provider:Toby HASSAN MD Location:[facility] Appointment Type:URO Office Visit [facility] Hospital course Narrative Note Date & Type Note Facility Hospital course Narrative No data available for this section [facility] Progress note Note Date & Type Note Facility Progress note No data available for this section [facility] Summary Purpose Family History No Family History Records Found No data available for this section No Family History Records Found Advance Directives No Advanced Directives Records FoundNo Advanced Directives Records Found Additional Source Comments (unrecognized sect ion and content) No Status Records FoundNo Status Records Found INFORMATION SOURCE (unrecogn ized section and content) DATE CREATED AUTHOR 04/21/2022 [facility] DATE CREATED AUTHOR 'S ORGANIZ ATION 03/07/2024 [facility] FOR RECORDS PERTAINING TO PATIENTS WHO ARE [...] BE BASED ON THE PRIMARY CLINICAL RECORDS. [facility]. provides no warranty or guarantee of the accuracy or completeness of information in this document.
[2024-03-27 12:41] LABS: Calcium 8.6 mg/dL (8.5-10.1); Carbon Dioxide 28.7 mmol/L (21.0-32.0); Chloride 104 mmol/L (98-107); Estimated GFR (African America >60 (>=60); Estimated GFR (Non-African Ame >60 (>=60); Phosphorus 3.5 mg/dL (2.6-4.7); Sodium 140 mmol/L (136-145); Uric Acid 6.9 mg/dL (3.5-7.2)
[2024-03-28 12:10] LABS: PTH, Intact 33 pg/mL (15-65)
== END 2024-03-27 10:52 | disposition home or self-care (01) ==
LOC: LAB 10:52
PROVIDERS: PCP Family Medicine; Visit Provider Urology
DX: N20.0 Calculus of kidney (principal)
CPT/HCPCS: 36415; 74018; 82310; 82374; 82435; 82565; 83970; 84100; 84295; 84520; 84550

== ENCOUNTER 2024-11-07 12:14 | Outpatient (OUT) | payer BC, SELFPAY ==
--- NOTE | 2024-11-07 12:19 | XR_ITS ---
[address] [address] Patient Name: JIMMY VALDEZ MRN: [id number] date: 1990 Sex: M Assigned Patient Location: [facility] Current Patient Location: Accession/Order Number: [id number] Exam Date: 11/07/2024 12:20 Report Date: 11/08/2024 15:46 At the request of: NATTY FISHMAN Procedure: XR abdomen 1V EXAMINATION: XR abdomen 1V HISTORY: kidney stones N20.0 COMPARISON: 03/27/2024 FINDINGS: KIDNEY/URETER - RIGHT: No visible renal or ureteral calcifications. KIDNEY/URETER - LEFT: 3.4 mm calcification mid pole PELVIS: No visible ureteral calcifications. Any visible calcifications favor phleboliths. BOWEL: No abnormal dilation or deviation. BONES: No acute abnormality. OTHER: Negative. No abnormal gaseous collections. XR/XR abdomen 1V IMPRESSION: Left nephrolith Electronically authenticated by: GLO SAHNI Date: 11/08/2024 15:46
--- OUTSIDE RECORDS SUMMARY | 2024-11-07 12:36 | XMS_ITS | CCD ---
Author Organization [facility] Care Team Providers Care Test Baker Name Role Phone DR BERKLEY BROCK Primary Care Unavailable JOSEPH JALLOH Admitting Unavailable KHLOE TRIMBLE Consulting Unavailable JOSEPH JALLOH Attending Unavailable TYRESE NEVILEL Consulting Unavailable DELMY, DR BERKLEY Vogel Attending Unavailable DELMY, DR BERKLEY Vogel Primary Care Unavailable KALEY, DR RICK Polanco Consulting Unavailable DELMY, DR BERKLEY Vogel Admitting Unavailable DELMY, DR BERKLEY Vogel Consulting Unavailable DELMY, BERKLEY Attending Unavailable Toby HASSAN Attending Unavailable Toby HASSAN Attending Unavailable Allergies Allergy Classification Reported Allergen(s) Allergy Type Date of Onset Reaction(s) Facility (1 source) No Known Medication Allergies; Translations: [No Known Medication Allergies] Propensity to adverse reactions (disorder) [facility] Repository Medications Current Medications Medication Drug Class(es) [...] Facil ity ED Note-Physicianon 03-06-20 ED Note-Physician [id number]#1.0 0TIFF Normal [facility] Formson 03-06-2024 Forms [id number]. 00TIFF [facility] Forms [id number] 0TIFF [facility] RAD - MISCon 03-06-2024 [facility] [id number]. 00TIFF [facility] [id number] TIFF [facility] Ambulatory Visit Summaryon 0 03-05-2024 Ambulatory Visit [...] Toby HASSAN MD Where: [facility] Patient Educationon 03-05-20 Patient Education Urology Kidney [...] these instructions at home: Medicines ? Take pbhw-qaw-btmktps and prescription medicines only as told by [...] provider. Document Revised: 05/23/2022 Document Reviewed: 05/23/2022 [employer] Patient Education ? 2022 [employer]. Mandi Mejias [facility] Urology Office/Clinic Noteon 03-05-2024 Urology Office/Clinic Note Chief Complaint [employer] [facility] f/u w/ KUB HPI Staff Jimmy is a 33 y.o. male new patient here for [facility] follow up. Pt presented to [facility] on 02/12/24 due to left lower [...] male new pt here for f/u to [facility] visit. 1. Ureteral stone (N20.1: Calculus [...] with voice recognition artificial intelligence software, specifically [employer], [employer] and or [employer]. Substitutions may have occurred due to the inherent limitations of voice recognition and artificial intelligence software. Follow-up With When Contact Information Toby HASSAN MD, URL [address] [place], [place] [id number]- Additional Instructions: 6 mos w/ KUB and met w/u Patient Education Kidney Stones, Uqly-iw-Fzon IKanika, personally scribed for Dr. Hassan on 03/05/2024 11:18:47. . Documentation recorded by the Kanika mcelroy acurately reflects the services(s) I performed and decisions made by me. Authent (more content not included)... Normal [facility] Comment on above: Result Comment: Elec tronically Signed By: Toby HASSAN MD\.br\Date and Time Signed: 03/05/24 12:00 EDT\.br\Electronically Co-Signed By: Kanika Jeffers\.br\Date and Time Co-Signed: 03/05/24 11:19 EDT RAD - MISCon 03-04-2024 RAD - MISC [id number] 0TIFF Normal [facility] CBC AUTO DIFFon 04-16-2022 BASO # 0.1 103/ul Normal 0.0-0.1 [facility] Comment on above: Performed By: #### C BC #### [facility] [address] [place], [place] [address] Dr. Grady Haywood Basophils/100 WBC (Bld) 1.1 % Normal 0.2-2.0 [facility] Comment on above: Performed By: #### C BC #### [facility] [address] [place] [address] Dr. Grady Haywood EO # 0.2 103/ul Normal 0.0-0.7 [facility] Comment on above: Performed By: #### C BC #### [facility] [address] [place] [address] Dr. Grady Haywood Eosinophils/100 WBC (Bld) 2.8 % Normal 0.9-7.0 [facility] Comment on above: Performed By: #### C BC #### [facility] [address] [place] [address] Dr. Grady Haywood Erythrocyte distribution width (RBC) [Ratio] 13.0 % Normal 11.0-15.0 [facility] Comment on above: Performed By: #### C BC #### [facility] [address] [place] [address] Dr. Grady Haywood Hematocrit (Bld) [Volume fraction] 42.7 % Normal 42.0-54.0 [facility] Comment on above: Performed By: #### C BC #### [facility] [address] [place] [address] Dr. Grady Haywood Hemoglobin (Bld) [Mass/Vol] 14.2 g/dL Normal 14.0-18.0 [facility] Comment on above: Performed By: #### C BC #### [facility] [address] [place] [address] Dr. Grady Haywood IG # 0.01 10e3/ul Normal 0.00-0.03 [facility] Comment on above: Performed By: #### C BC #### [facility] [address] [place] [address] Dr. Grady Haywood IG % 0.2 % Normal 0.0-0.5 [facility] Comment on above: Performed By: #### C BC #### [facility] [address] [place] [address] Dr. Grady Haywood LYMPH # 1.3 103/ul Normal 1.2-3.8 [facility] Comment on above: Performed By: #### C BC #### [facility] [address] [place] [address] Dr. Grady Haywood Lymphocytes/100 WBC (Bld) 21.0 % Normal 20.5-60.0 [facility] Comment on above: Performed By: #### C BC #### [facility] [address] [place] [address] Dr. Grady Haywood MANUAL DIFF REQ NO Normal [facility] Comment on above: Performed By: #### C BC #### [facility] [address] [place] [address] Dr. Grady Haywood MCH (RBC) [Entitic mass] 28.8 pg Normal 25.9-34.0 [facility] Comment on above: Performed By: #### C BC #### [facility] [address] [place] [address] Dr. Grady Haywood MCHC (RBC) [Mass/Vol] 33.3 g/dL Normal 29.9-35.2 [facility] Comment on above: Performed By: #### C BC #### [facility] [address] [place] [address] Dr. Grady Haywood MCV (RBC) [Entitic vol] 86.6 fL Normal 80.0-94.0 [facility] Comment on above: Performed By: #### C BC #### [facility] [address] [place] [address] Dr. Grady Haywood MONO # 0.5 103/ul Normal 0.3-0.8 [facility] Comment on above: Performed By: #### C BC #### [facility] [address] [place] [address] Dr. Grady Haywood Monocytes/100 WBC (Bld) 7.8 % Normal 1.7-12.0 [facility] Comment on above: Performed By: #### C BC #### [facility] [address] [place] [address] Dr. Grady Haywood NEUT # 4.3 103/ul Normal 1.4-6.5 [facility] Comment on above: Performed By: #### C BC #### [facility] [address] [place] [address] Dr. Grady Haywood Neutrophils/100 WBC (Bld) 67.1 % Normal 43.0-75.0 [facility] Comment on above: Performed By: #### C BC #### [facility] [address] [place] [address] [address] Grady Haywood Platelet mean volume (Bld) [Entitic vol] 10.3 fL Normal 9.5-13.5 [facility] Comment on above: Performed By: #### C BC #### [facility] [address] [place] [address] [address] Grady Haywood PLT 283 103/ul Normal 150-450 [facility] Comment on above: Performed By: #### C BC #### [facility] [address] [place] [address] Dr. Grady Haywood RBC 4.93 106/ul Normal 4.70-6.10 [facility] Comment on above: Performed By: #### C BC #### [facility] [address] [place] [address] Dr. Grady Haywood WBC 6.4 103/ul Normal 4.0-11.0 [facility] Comment on above: Performed By: #### C BC #### [facility] [address] [place], [place] [id number] Dr. Grady Haywood CT ABD/PELVIS WO CONon [...] TYRESE NEVILLE Date: 2022-04-16 17:12 Normal [facility] URINE PROFILEon 2 Bilirubin Ql (U) Negative Normal NEGATIVE [facility] Comment on above: Performed By: #### E RUR #### [facility] [address] [place] [address] Dr. Grady Haywood Clarity (U) CLEAR Normal CLEAR [facility] Comment on above: Performed By: #### E RUR #### [facility] [address] [place] [address] Dr. Grady Haywood Color (U) LT. YELLOW Normal YELLOW [facility] Comment on above: Performed By: #### E RUR #### [facility] [address] [place] [address] Dr. Grady Haywood ERUAHD A micrscopic examination will be performed if indicated. Normal [facility] Comment on above: Performed By: #### E RUR #### [facility] [address] [place] [address] Dr. Grady Haywood Glucose Ql (U) Negative Normal NEGATIVE [facility] Comment on above: Performed By: #### E RUR #### [facility] [address] [place] [address] Dr. Grady Haywood Hemoglobin Ql (U) Negative Normal NEGATIVE [facility] Comment on above: Performed By: #### E RUR #### [facility] [address] [place] [address] Dr. Grady Haywood Ketones Ql (U) Negative Normal NEGATIVE [facility] Comment on above: Performed By: #### E RUR #### [facility] [address] [place] [address] Dr. Grady Haywood LEUKOCYTES Negative Normal NEGATIVE [facility] Comment on above: Performed By: #### E RUR #### [facility] [address] [place] [address] Dr. Grady Haywood Nitrite Ql (U) Negative Normal NEGATIVE [facility] Comment on above: Performed By: #### E RUR #### [facility] [address] [place] [address] Dr. Grady Haywood pH (U) 7.0 [pH] Normal 5-9 [facility] Comment on above: Performed By: #### E RUR #### [facility] [address] [place] [address] Dr. Grady Haywood SPEC GRAVITY 1.020 Normal 1.005-<=1.025 [facility] Comment on above: Performed By: #### E RUR #### [facility] [address] [place] [address] Dr. Grady Haywood UA PROTEIN Negative Normal NEGATIVE/ TRACE [facility] Comment on above: Performed By: #### E RUR #### [facility] [address] [place] [address] Dr. Grady Haywood UR MICRO IND NOT INDICATED Normal [facility] Comment on above: Performed By: #### E RUR #### [facility] [address] [place] [address] Dr. Grady Haywood Urobilinogen Qn (U) 0.2 {Nighat'U}/dL Normal 0.2 - 1. 0 [facility] Comment on above: Performed By: #### E RUR #### [facility] [address] [place] [address] Dr. Grady Haywood PROF CHEM 8 (BAS METB)on Anion gap [Moles/Vol] 11.7 mmol/L Normal [facility] Comment on above: Performed By: #### B MP #### [facility] [address] [place] [address] Dr. Grady Haywood Calcium [Mass/Vol] 9.1 mg/dL Normal 8.5-10.1 [facility] Comment on above: Performed By: #### B MP #### [facility] [address] [place] [address] Dr. Grady Haywood Chloride [Moles/Vol] 105 mmol/L Normal 98-107 [facility] Comment on above: Performed By: #### B MP #### [facility] [address] [place] [address] Dr. Grady Haywood CO2 [Moles/Vol] 28.4 mmol/L Normal 21.0-32.0 [facility] Comment on above: Performed By: #### B MP #### [facility] [address] [place] [address] Dr. Grady Haywood Creatinine [Mass/Vol] 1.04 mg/dL Normal 0.70-1.30 [facility] Comment on above: Performed By: #### B MP #### [facility] [address] [place] [address] [address] Grady Haywood EGFR-AF BRITISH >60 Normal >=60 [facility] Comment on above: Performed By: #### B MP #### [facility] [address] [place] [address] [address] Grady Haywood EGFR-NON AF BRITISH >60 Normal >=60 [facility] Comment on above: Performed By: #### B MP #### [facility] [address] [place] [address] [address] Grady Haywood Glucose [Mass/Vol] 102 mg/dL Normal 74-106 [facility] Comment on above: Performed By: #### B MP #### [facility] [address] [place] [address] Dr. Grady Haywood Potassium [Moles/Vol] 4.1 mmol/L Normal 3.5-5.1 [facility] Comment on above: Performed By: #### B MP #### [facility] [address] [place] [address] Dr. Grady Haywood Sodium [Moles/Vol] 141 mmol/L Normal 136-145 [facility] Comment on above: Performed By: #### B MP #### [facility] [address] [place] [address] Dr. Grady Haywood Urea nitrogen [Mass/Vol] 18.0 mg/dL Normal 7.0-18.0 [facility] Comment on above: Performed By: #### B MP #### [facility] [address] [place] [address] Dr. Grady Haywood Urea nitrogen/Creatinine [Mass ratio] 17.3 mg/mg Normal [facility] Comment on above: Performed By: #### B MP #### [facility] [address] [place] [address] Dr. Grady Haywood US SCROTUMon 10-13-2021 US [...] by: RICK ROCHE Date: 2021-10-13 10:13 Normal [facility] Vital Signs Date Time Vital Sign Value Performing Clinician Facility 03-05-2024 10:31-0400 Blood Pressure Location [facility] 03-05-2024 10:31-0400 Body temperature 98.06 [degF] [facility] 03-05-2024 10:31-0400 Diastolic blood pressure 80 mm[Hg] [facility] 03-05-2024 10:31-0400 Heart rate 75 /min [facility] 03-05-2024 10:31-0400 Respiratory rate 16 /min [facility] 03-05-2024 10:31-0400 Systolic blood pressure 137 mm[Hg] [facility] Encounters Encounter Date Encounter Type Care Provider Facility Start: 11-12-2024 ambulatory Toby HASSAN Facility :[facility] Start: 05-08-2024 End: 05-08-2024 ambulatory BERKLEY BROCK Not Available Start: 03-05-2024 End: 03-05-2024 ambulatory Toby HASSAN Facility:[facility] Start: 03-05-2024 End: 03-05-2024 Patient encounter procedure Toby Guadarrama SRAVANTHI [facility] Start: 02-20-2024 ambulatory Toby HASSAN Facility:[facility] Start: 04-16-2022 End: 04-16-[address] BERKLEY BROCK Facility:[facility] Start: 10-13-2021 End: 10-14-[address] BERKLEY BROCK Facility:[facility] Immunizations Immunization Date Immunization Notes Care Provider Fa cili 12-03-2022 SARS-CoV-2 (COVID-19 ) [id number] Toby HASSAN [facility] 01-30-2021 SARS-CoV-2 (COVID-19 ) mRNA BNT-162b2 vax Toby HASSAN [facility] 02-13-2007 meningococcal ACWY vaccine, unspecified formulation Toby HASSAN [facility] 05-22-2001 measles, mumps and rubella virus vaccine Toby HASSAN [facility] 12-13-1993 DTaP, unspecified formulation Toby HASSAN [facility] 03-21-1990 Hib, unspecified formulation Toby HASSAN [facility] 11-08-1989 measles, mumps and rubella virus vaccine Toby HASSAN [facility] Payers Date Payer Category Payer Unknown [id number] 1988 Unknown [id number] 2.16.84 [id number] 1988 Unknown [id number] 2.16.84 [id number] 1988 Unknown [id number] 2.16.84 [id number] 1988 Unknown [id number] 2.16.8 [id number] 1988 Unknown [id number] 2.16.8 [id number] 1959 Unknown [id number] Social History Date Type Detail Facility Start: 03-05-2024 Tobacco smoking status Never s moked tobacco (finding) [facility] Tobacco smoking status Never [facility] Sex Assigned At Male [facility] Functional Status Date Assessment Result Facility 03-05-2024 Functional Status N/A [facility] Discharge instructions 03-05-2024 Note Date & Type Note Facility 03-05-2024 Hospital Discharg e instructions Patient Education 03/05/2024 11:14:45 Kidney Stones, Folj-ys-Drhw Kidney Stones Kidney stones are rock-like masses [...] Follow these instructions at home: Medicines Take dzuz-nlh-wkmzgpk and prescription medicines only as told by [...] provider. Document Revised: 05/23/2022 Document Reviewed: 05/23/2022 [employer] Patient Education 2022 [employer] Follow Up Care 02/20/2024 10:19:28 With:SRAVANTHI DIEZ, Toby Guadarrama, URL Address: [address] [address]- When: Unknown Comments:6 mos w/ KUB and met w/u [facility] Evaluation + Plan note Note Date & Type Note Facility Evaluation + Plan note Future Appointments Appointment Date:09/23/2024 09:15:00 AM Scheduled Provider:Toby HASSAN MD Location:[facility] Appointment Type:URO Office Visit [facility] Hospital course Narrative Note Date & Type Note Facility Hospital course Narrative No data available for this section [facility] Progress note Note Date & Type Note Facility Progress note No data available for this section [facility] Summary Purpose Family History No Family History Records Found No data available for this section No Family History Records FoundNo Family History Records Found Advance Directives No Advanced Directives Records FoundNo Advanced Directives Records FoundNo Advanced Directives Records Found Additional Source Comments (unrecognized sect ion and content) No Status Records FoundNo Status Records FoundNo Status Records Found INFORMATION SOURCE (unrecogn ized section and content) DATE CREATED AUTHOR 04/21/2022 [facility] DATE CREATED AUTHOR AUTHOR'S ORGANIZ ATION 05/10/2024 [facility] EPIC DATE CREATED AUTHOR AUTHOR'S ORGANIZ ATION 09/22/2024 [facility] FOR RECORDS PERTAINING TO PATIENTS WHO [...] BE BASED ON THE PRIMARY CLINICAL RECORDS. [employer] provides no warranty or guarantee of the accuracy or completeness of information in this document.
== END 2024-11-07 12:15 | disposition home or self-care (01) ==
LOC: RAD 12:15
PROVIDERS: PCP Family Medicine; Visit Provider Urology
DX: N20.0 Calculus of kidney (principal)
CPT/HCPCS: 74018